=== PATIENT | male | born 1990 | race Caucasian/White ===

== ENCOUNTER 2021-04-12 22:37 | Emergency (ER) | payer OTHER ==
[~2021-04-12] VITALS: Ht 182.9 cm; Wt 147.4 kg
[2021-04-12] MEDS ORDERED: LEXAPRO 10 MG T10 M2 PO (22:49)
[2021-04-12] MEDS ORDERED: LAMICTAL200 MG PO (22:49)
[2021-04-12] MEDS ORDERED: PROPRANOLOL 20M20 MG PO (22:52)
[2021-04-13 00:27] VITALS: BP 125/77
== END 2021-04-13 00:30 | disposition home or self-care (01) ==
LOC: ER 22:37
DX: F41.9 Anxiety disorder, unspecified (principal); Z79.899 Other long term (current) drug therapy